=== PATIENT | female | born 1990 | race Caucasian/White ===

== ENCOUNTER 2017-12-10 14:37 | Emergency (ER) | payer MEDICAID, SELFPAY ==
[2017-12-10 14:38] VITALS: BP 109/70; PULSE 123; RESP 20; TEMP 36.6; O2SAT 97; BMI 29.7
--- NOTE | 2017-12-10 14:54 | ED.VISSUMM ---
- ER Visit Summary Date of Service: 12/10/17 Chief Complaint: History of Present Illness: The patient is a 27 F presents to the emergency department with and abdominal pain. The patient is currently 16 weeks and 4 days. She has had documented intrauterine on ultrasound. The patient is not from the [facility]. 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 She states that she has been trying to establish with [facility], but cannot because of her insurance. She states over the past 2 weeks, she has had cramping in her suprapubic area. She states that she was diagnosed with urinary tract infection but stopped taking her antibiotics because she thought that they are making her pain worse. She denies any fevers or chills. She has had no vaginal bleeding. She denies any back pain, nausea, or vomiting. Physical Examination: Vital signs reviewed General: Well-nourished, well-developed Head: Normocephalic, atraumatic Eyes: Pupils equal and reactive, extraocular muscles intact Neck, supple, no lymphadenopathy Heart: Regular rate and rhythm Respiratory: No distress, clear bilaterally Abdomen: Soft, nontender, nondistended, no peritoneal signs Back: Nontender Extremities: Nontender, no edema, no cords Skin: Normal color no rash Neuro: Alert and oriented, no focal or lateralizing deficits Test Results: [] Emergency Department Course and Treatment: The patient has pain in bilateral lower quadrants. She is no rebound or guarding. She also has mild suprapubic tenderness. Urine does show some trace evidence of infection. With patient's , she will be treated. I really of no concern for appendicitis or other dangerous process. I did a bedside ultrasound which confirmed single live intrauterine . At this time, I do for the patient is safe for outpatient therapy. She will continue Tylenol and hydration. She will be started on Keflex she has been intermittently taking her Macrobid. She will be discharged with outpatient [facility] follow-up. Treatment Plan: [] Disposition: Discharge Impression: 1. Abdominal pain in 2. Cystitis This note was generated with [employer] software. It may contain incorrect words, spelling, and punctuation that were not noted in review of the chart prior to signing ED Disposition - Plan for ED Patient: Chief Complaint: Instructions: ED Care, ED UTI Cystitis Female Prescriptions: Cephalexin [Keflex] 500 mg PO Q8 #30 cap Referrals: Ilana Orozco MD [STAFF PHYSICIAN] - Nora Mendez MD [STAFF PHYSICIAN] -
[2017-12-10] MEDS: Acetaminophen 500 MG Tablet 1000 MG PO (14:57)
[2017-12-10 15:21] LABS: Color, Urine Yellow (Yellow); Glucose, Dipstick Normal (Normal); Ketone-Dipstick 15 mg/dl (Negative); Leukocyte Esterase-Dipstick 100 /ul (Negative); Nitrite-Dipstick Negative (Negative); Occult Blood-Urine 10 /ul (Negative); Protein-Dipstick 15 mg/dl (Negative); Urine Clarity Sl. Cloudy (Clear); Urine Urobilinogen 1 mg/dl (Normal)
[2017-12-10 15:22] LABS: Urine Bilirubin Dipstick 1 mg/dL (Negative)
[2017-12-10 15:28] LABS: White Blood Cells 0-5 SEEN /hpf (0-5)
[2017-12-10 15:29] LABS: Bacteria 1+ /hpf (None Seen); Mucous, Urine 1+ /hpf (<or=2+); Red Blood Cells-Urine 0-5 SEEN /hpf (0-5); Squamous Epithelial Cells - UA 10-25 SEEN /hpf (5-10)
== END 2017-12-10 15:45 | disposition home or self-care (01) ==
LOC: ED 15:24
PROVIDERS: Emergency Provider Emergency Medicine
DX: O23.12 Infections of bladder in pregnancy, second trimester (principal); O26.90 Pregnancy related conditions, unspecified, unspecified trimester; R10.9 Unspecified abdominal pain; Z3A.16 16 weeks gestation of pregnancy
CPT/HCPCS: 81001; 99282

== ENCOUNTER 2018-01-07 15:00 | Emergency (ER) | payer MEDICAID, SELFPAY ==
[2018-01-07 15:01] VITALS: BP 96/52; PULSE 130; RESP 18; TEMP 36.6; O2SAT 98; BMI 30.2
--- NOTE | 2018-01-07 15:31 | ED.VISSUMM ---
- ER Visit Summary Date of Service: 01/07/18 Chief Complaint: Abdominal pain History of Present Illness: The patient is a 27 F who is currently 20 weeks . She states she had a recent UTI. Appears that she was noncompliant with Macrobid and she was switched to Keflex approximately 1 month ago. Patient states she completed the full course of Keflex but had no improvement in her symptoms. She complains of dysuria and lower abdominal pain. She has pain in both lower quadrants that radiates around into her lower back. She has had some chills but no fever. Patient is from [place] and that is where her OB care has been received. She has had an ultrasound previously. Physical Examination: Blood pressure is 96/52, temperature 98, heart rate 130, respiratory rate 18, pulse ox 98% on room air. At the time of my examination her heart rate is 111. Patient sitting upright in bed. She is in no acute distress and appears nontoxic. Head and neck examination is unremarkable. Heart is slightly tachycardic and regular. Lung sounds are clear. Abdomen is soft with diffuse tenderness, worse in the lower abdomen. There is no guarding or rebound. Hypoactive bowel sounds are noted throughout. Back examination reveals no true CVA tenderness. She has reproducible tenderness to light touch of the low lumbar paraspinal muscles. No rash or lesions are noted. Test Results: CBC and chemistry studies unremarkable. Urinalysis shows 0-5 white cells with 1+ bacteria. There also 0-5 epithelial cells. Pelvic ultrasound shows 20 week 2 day intrauterine with probable subamniotic hemorrhage measuring 5.5 x 4.8 x 2.9 cm. Emergency Department Course and Treatment: Patient is given IV fluids. On repeat evaluation she standing at bedside fully dressed and ready to leave. She states that she is going back home to [place] the end of March. She states that her blood type is A- and her is a be positive. She is supposed to get some kind of shot which she has not yet gotten. Patient states that her insurance does not cover any of the [employer] in this area so she was waiting for further OB care until she goes back home. I spoke with Dr. Orozco, on-call for no doc. Patient will be given her name and number for follow-up. Treatment Plan: Pelvic rest Disposition: Discharge Impression: 1. Second trimester 2. Subamniotic hemorrhage This note was generated with epicurio dictation software. It may contain incorrect words, spelling, and punctuation that were not noted in review of the chart prior to signing ED Disposition - Plan for ED Patient: Chief Complaint: Abd Pain Referrals: [facility],Out of [NON-STAFF] -
[2018-01-07 15:37] VITALS: PULSE 114; O2SAT 97
[2018-01-07] MEDS: 0.9% Normal Saline 1,000 ML 150 ML IV (16:00)
--- NOTE | 2018-01-07 16:00 | US_ITS ---
STUDY: SECOND AND THIRD TRIMESTER OBSTETRICAL ULTRASOUND - LIMITED REASON FOR EXAM: Female, 27 years old. Pelvic pain LMP: Unknown PRIOR ULTRASOUND: None. TECHNIQUE: Transabdominal ultrasound evaluation was performed. FINDINGS: There is a single intrauterine fetus. The fetus is in a cephalic presentation. There is demonstrated cardiac activity with a heart rate of 143 bpm. There is a normal amniotic fluid volume. The placenta is posterior in location and is not low lying. There are Grade grade 1 placental changes. There is a subamniotic heterogeneous lesion within the placenta measuring 5.5 x 4.8 x 2.9 cm. It does not show significant color blood flow. The cervix measures 4 cm in length. BIOMETRY: BPD: 4.4 cm: 19 weeks, 3 days HC: 18 cm: 20 weeks, 3 days AC: 15.3 cm: 20 weeks, 4 days FL: 3.3 cm: 20 weeks, 2 days Age by LMP: 20 weeks, 4 days. LOIS by LMP: May 23, 2018. age by current US: 20 weeks, 2 days. LOIS by current US: May 25, 2018. Estimated weight: 347 grams, +/- 51 grams, 33 percentile. US/OB Limited (No Biometrics) IMPRESSION: 20 week 2 day intrauterine and probable subamniotic hemorrhage. Electronically Signed: Willis Shelby MD at 18:40 EDT , Service support ,
[2018-01-07 16:29] LABS: Absolute Lymphocyte Count 2.21 X10^3/ul (0.83-4.51); Basophil# 0.01 X10^3/uL; Basophil% 0.1 % (0-1); Eosinophil# 0.06 X10^3/uL; Eosinophils% 0.7 % (0-5); Hemoglobin 13.6 g/dl (12.0-15.0); Lymphocyte # 2.21 X10^3/ul (4.0); Lymphocyte % 25.6 % (19-41); Mean Corpuscular Hgb 30.9 pg (27.0-32.0); Mean Corpuscular Volume 90.9 fL (81-99); Mean Platelet Vol. 10.1 fl (6.2-12.0); Monocyte# 0.31 X10^3/uL; Monocyte% 3.6 % (0-10); Neutrophil # 6.02 X10^3/uL (2.7-7.7); Neutrophil % 69.8 % (47-70); Platelet Count 201 K/mm3 (150-450); RBC Distribution Width SD 42.9 fl (35.1-43.9); White Blood Count 8.6 K/mm3 (4.4-11.0)
[2018-01-07 16:34] LABS: Anion Gap 6 (5-15); BUN 6 mg/dL (7-18); BUN/Creat Ratio 12.8 RATIO (10-20); Calcium,Total 8.9 mg/dL (8.5-10.1); Chloride 108 mmol/L (98-107); Creatinine, Serum 0.47 mg/dL (0.55-1.02); EST Glomerular Filtration Rate 166 mL/min (>60); Est Glom Filt Rate - Afr Amer 201 mL/min (>60); Estimated Creatinine Clearance 139.68 ml/min; Glucose 93 mg/dL (74-106); Potassium 3.9 mmol/L (3.5-5.1); Sodium Level 137 mmol/L (136-145)
[2018-01-07 16:45] LABS: POSITIVE COUNT NO; POSITIVE DIFFERENTIAL NO; POSITIVE MORPHOLOGY NO
[2018-01-07 16:47] LABS: Red Blood Cells-Urine 0 SEEN /hpf (0-5)
[2018-01-07 16:49] LABS: Color, Urine Yellow (Yellow); Glucose, Dipstick Normal (Normal); Ketone-Dipstick Negative (Negative); Leukocyte Esterase-Dipstick 500 /ul (Negative); Nitrite-Dipstick Negative (Negative); Occult Blood-Urine Negative /ul (Negative); Protein-Dipstick Negative (Negative); Specific Gravity, Urine 1.015 (1.002-1.030); Urine Bilirubin Dipstick Negative (Negative); Urine Clarity Sl. Cloudy (Clear); Urine Urobilinogen Normal (Normal); Urine pH 6.5 (5.0 - 8.0)
[2018-01-07 17:08] LABS: Bacteria 1+ /hpf (None Seen); Mucous, Urine 1+ /hpf (<or=2+); Squamous Epithelial Cells - UA 0-5 SEEN /hpf (5-10); White Blood Cells 0-5 SEEN /hpf (0-5)
--- NOTE | 2018-01-07 19:05 | ED.DEP ---
ED Disposition - Plan for ED Patient: Disposition: Home or Assisted Living Chief Complaint: Abd Pain Instructions: ED Pelvic Pain Preg UKO 2 or 3 Tri Referrals: [facility],Out of [NON-STAFF] - Ilana Orozco MD [STAFF PHYSICIAN] - As soon as possible
[2018-01-07 19:14] VITALS: PULSE 113; RESP 18; O2SAT 100
== END 2018-01-07 19:16 | disposition home or self-care (01) ==
PROVIDERS: Emergency Provider Emergency Medicine
DX: O46.92 Antepartum hemorrhage, unspecified, second trimester (principal); O26.892 Other specified pregnancy related conditions, second trimester; R30.0 Dysuria; R10.31 Right lower quadrant pain; R10.32 Left lower quadrant pain; O99.332 Smoking (tobacco) complicating pregnancy, second trimester; Z91.14 Patient's other noncompliance with medication regimen; Z87.440 Personal history of urinary (tract) infections; Z3A.20 20 weeks gestation of pregnancy; Z79.899 Other long term (current) drug therapy
CPT/HCPCS: 76815; 80048; 81001; 85025; 87086; 87088; 99285; A4216